=== PATIENT | female | born 1955 | race Caucasian/White ===

== ENCOUNTER 2018-04-26 08:06 | Outpatient (CLI) | payer OTHER | END 2018-04-26 08:07 | disposition home or self-care (01) | LOC: BICMAMMO 08:06 | PROVIDERS: ATTEND Family Medicine | DX: Z12.31 Encounter for screening mammogram for malignant neoplasm of breast (principal) | CPT/HCPCS: 77063; 77067 ==

== ENCOUNTER 2022-05-20 10:30 | Inpatient (IN) | payer OTHER, MEDICARE ==
[2022-05-24] MEDS ORDERED: Fentanyl 250 MCG/5 ML VIAL ONE (06:31)
[2022-05-24] MEDS ORDERED: Midazolam HCl 2 mg/2 ml Vial ONE (06:31)
[2022-05-24] MEDS ORDERED: Famotidine/PF 20 mg/2ml Vial ONE (06:31)
[2022-05-24] MEDS ORDERED: Ondansetron PF 4 MG/2 ML Vial ONE (07:03)
[2022-05-24] MEDS ORDERED: Rocuronium Bromide 10 MG/ML (10ML VIAL) ONE (07:03)
[2022-05-24] MEDS ORDERED: PROPOFOL 200 MG/20 ML VIAL ONE (07:03)
[2022-05-24] MEDS ORDERED: PHENYLEPHRINE-NS 100 MCG/ML 10 ML SYRINGE ONE ×2 (07:03→10:20)
[2022-05-24] MEDS ORDERED: Glycopyrrolate 0.2 MG/ML 5 ML SYRINGE ONE (07:03)
[2022-05-24] MEDS ORDERED: Ketorolac Tromethamine 30 MG/ML VIAL ONE (07:03)
[2022-05-24] MEDS ORDERED: ePHEDrine 50 MG/ML VIAL ONE (07:03)
[2022-05-24] MEDS ORDERED: Lidocaine 1% PF 5 ML VIAL ONE (07:03)
[2022-05-24] MEDS ORDERED: NEOSTIGMINE 3 MG/3 ML SYR 3 MG/3 ML SYRINGE ONE (07:03)
[2022-05-24] MEDS ORDERED: cefOXitin 2 GM VIAL ONE (07:09)
[2022-05-24] MEDS ORDERED: Sodium Chloride 0.9% 100 ML ONE (07:09)
[2022-05-24 07:18] LABS: SARS-CoV-2 NAA Rapid Test Not Detected (NotDetected)
[2022-05-24] MEDS ORDERED: Fentanyl 100 MCG/2 ML VIAL ONE ×2 (07:29→11:02)
[2022-05-24] MEDS ORDERED: Bupivacaine PF 0.5% 30 ML VIAL ONE (07:53)
[2022-05-24] MEDS ORDERED: Phenylephrine 10 MG/ML VIAL ONE ×2 (08:47→10:20)
[2022-05-24] MEDS ORDERED: Promethazine HCl 25 MG/ML VIAL IVPB PRN (09:41)
[2022-05-24] MEDS ORDERED: Promethazine HCl 25 MG/ML VIAL IM PRN ×4 (09:41→10:59)
[2022-05-24] MEDS ORDERED: HYDROmorphone 2 MG/ML VIAL SLOW IVP PRN (09:41)
[2022-05-24] MEDS ORDERED: Ondansetron HCl/PF 4 MG/2 ML Vial IVP PRN (09:41)
[2022-05-24] MEDS ORDERED: Bupivacaine/Epinephrine 0.25% 30 ML VIAL ONE (10:04)
[2022-05-24] MEDS ORDERED: SUGAMMADEX SODIUM 200 MG/2 ML VIAL ONE (10:20)
[2022-05-24] MEDS ORDERED: Ondansetron PF 4 MG/2 ML Vial IVP PRN ×3 (10:23→10:59)
[2022-05-24] MEDS ORDERED: Ipratropium/Albuterol 3 ML NEB NEB PRN (10:23)
[2022-05-24] MEDS ORDERED: hydrALAZINE 20 MG/ML VIAL SLOW IVP PRN (10:23)
[2022-05-24] MEDS ORDERED: diphenhydrAMINE 25 MG CAP PO PRN ×2 (10:59)
[2022-05-24] MEDS ORDERED: diphenhydrAMINE 50 MG/ML VIAL IVP PRN ×2 (10:59)
[2022-05-24] MEDS ORDERED: diphenhydrAMINE 50 MG/ML VIAL IM PRN ×2 (10:59)
[2022-05-24] MEDS ORDERED: FENTANYL 500 MCG/10 ML VIAL 2,000 MCG in Sodium Chloride 0.9% 60 ML IV PRN (10:59)
[2022-05-24] MEDS ORDERED: Zolpidem Tartrate 5 MG TAB PO PRN ×2 (10:59)
[2022-05-24] MEDS ORDERED: Naloxone HCl 0.4 mg/ml Vial IV PRN ×2 (10:59)
[2022-05-24] MEDS ORDERED: Communication Order-Pharmacy FS SCH ×2 (11:00)
[2022-05-24] MEDS: Ketorolac Tromethamine 30 MG/ML VIAL IVP SCH ×3 (17:49→23:26)
[2022-05-24] MEDS: Sodium Chloride 0.9% 1,000 ML IV SCH ×2 (17:49→18:29)
[2022-05-24] MEDS: cefOXitin 2 GM in Sodium Chloride 0.9% 100 ML IVPB SCH ×2 (18:10→23:26)
[2022-05-24] MEDS: Famotidine/PF 20 mg/2ml Vial SLOW IVP SCH (20:00)
[2022-05-24] MEDS: Famotidine 20 MG TAB PO SCH (20:00)
[2022-05-25] MEDS: Sodium Chloride 0.9% 1,000 ML IV SCH ×3 (03:15→17:12)
[2022-05-25 06:02] LABS: #Lymphocytes 2.2 thou/uL (1.20-3.40); #Neutrophils 7.9 thou/uL (1.40-6.50); %Eosinophils 0.2 % (0.0-10.0); %Lymphocytes 19.8 % (21.0-51.0); %Monocytes 9.4 % (0.0-10.0); %Neutrophils 70.7 % (42.0-75.0); Hemoglobin 11.8 g/dL (12.0-16.0); Mean Corpuscular HGB CONC 32.5 g/dL (32.0-36.0); Mean Corpuscular Hemoglobin 29.4 pg (27.0-31.0); Mean Corpuscular Volume 90.5 fl (78.0-98.0); Mean Platelet Volume 8.1 fL (7.4-10.4); Platelet Count 242 10x3/uL (130-400); RBC Distribution Width 13.6 % (11.5-14.5); Red Blood Cell (RBC) Count 4.01 mill/uL (4.20-5.40); White Blood Cell (WBC) Count 11.2 10x3/uL (4.8-10.8)
[2022-05-25] MEDS: Ketorolac Tromethamine 30 MG/ML VIAL IVP SCH ×4 (06:15→23:51)
[2022-05-25 06:25] LABS: Anion Gap 10 mmol/L (10-20); BUN (Urea Nitrogen) 15 mg/dL (9.8-20.1); Calc. Creatinine Clearance 82 mL/min (70-130); Calcium 8.9 mg/dL (7.8-10.44); Carbon Dioxide 23 mmol/L (23-31); Chloride 109 mmol/L (98-107); Estimated GFR 76; Glucose 110 mg/dL (80-115); Potassium 4.1 mmol/L (3.5-5.1); Sodium 138 mmol/L (136-145)
[2022-05-25] MEDS: Famotidine 20 MG TAB PO SCH ×2 (08:05→21:07)
[2022-05-25] MEDS: Famotidine/PF 20 mg/2ml Vial SLOW IVP SCH ×2 (08:19→21:08)
[2022-05-26] MEDS: Sodium Chloride 0.9% 1,000 ML IV SCH ×3 (05:38→19:49)
[2022-05-26] MEDS: Ketorolac Tromethamine 30 MG/ML VIAL IVP SCH ×3 (05:38→18:03)
[2022-05-26] MEDS ORDERED: DC PCA Order Set 1 EACH FS ONE (07:42)
[2022-05-26] MEDS ORDERED: Morphine 4 MG/ML VIAL SLOW IVP PRN (07:43)
[2022-05-26] MEDS ORDERED: Morphine 2 MG/ML VIAL SLOW IVP PRN (07:43)
[2022-05-26] MEDS: Famotidine 20 MG TAB PO SCH ×2 (09:02→20:14)
[2022-05-26] MEDS ORDERED: HYDROcodone/Acetaminophen 5/325 mg Tablet PO PRN (09:09)
[2022-05-26] MEDS: Famotidine/PF 20 mg/2ml Vial SLOW IVP SCH ×2 (09:11→19:49)
[2022-05-26] MEDS: HYDROcodone/Acetaminophen 5/325 mg Tablet PO PRN ×2 (12:26→20:13)
[2022-05-27] MEDS: Ketorolac Tromethamine 30 MG/ML VIAL IVP SCH ×2 (00:18→04:47)
[2022-05-27] MEDS: Sodium Chloride 0.9% 1,000 ML IV SCH (04:47)
[2022-05-27 07:49] VITALS: BP 151/81; TEMP 98.3
[2022-05-27] MEDS: Famotidine/PF 20 mg/2ml Vial SLOW IVP SCH (08:50)
[2022-05-27] MEDS: Famotidine 20 MG TAB PO SCH (08:50)
== END 2022-05-27 10:40 | disposition home or self-care (01) | DRG 330 ==
LOC: SURG A 05-24 06:01 → SJJU 05-24 17:48
PROVIDERS: ADMIT Surgery; ATTEND Surgery
PROC: 0DBN0ZZ Excision of Sigmoid Colon, Open Approach (ICD-10-PCS; principal; 2022-05-24)
PROC: 0DQ80ZZ Repair Small Intestine, Open Approach (ICD-10-PCS; 2022-05-24)
DX: K57.32 Diverticulitis of large intestine without perforation or abscess without bleeding (principal); K56.609 Unspecified intestinal obstruction, unspecified as to partial versus complete obstruction; F41.9 Anxiety disorder, unspecified; I10 Essential (primary) hypertension; F32.A Depression, unspecified; Z79.899 Other long term (current) drug therapy
CPT/HCPCS: 36415; 36416; 80048; 85025; 88307; C1713; J0694; J1650; J1885; J2250; J2370; J2405; J2704; J3010; J3490; J7050; S0020; S0028; U0002

== ENCOUNTER 2022-05-20 10:39 | Outpatient (CLI) | payer OTHER ==
[2022-05-20 12:06] LABS: #Eosinphils 0.1 10x3/uL (0.0-0.5); #Monocytes 0.5 10x3/uL (0.0-1.1); #Neutrophils 2.8 10x3/uL (1.5-8.4); %Basophils 0.6 % (0.0-2.0); %Monocytes 7.7 % (0.0-10.0); %Neutrophils 42.4 % (40.0-75.0); Hemoglobin 13.9 g/dL (12.0-15.5); Mean Corpuscular HGB CONC 33.7 g/dL (32.0-36.0); Mean Corpuscular Hemoglobin 28.9 pg (27.0-33.0); Mean Corpuscular Volume 85.7 fl (81.6-98.3); Mean Platelet Volume 10.5 fl (7.4-10.4); Platelet Count 327 10x3/uL (150-450); RBC Distribution Width 14.2 % (11.5-14.5); Red Blood Cell (RBC) Count 4.81 10x6/uL (3.90-5.03); White Blood Cell (WBC) Count 6.6 10x3/uL (3.5-10.5)
[2022-05-20 12:32] LABS: ALT (SGPT) 42 U/L (8-55); AST (SGOT) 28 U/L (5-34); Albumin 4.5 g/dL (3.4-4.8); Alkaline Phosphatase 101 U/L (40-110); Anion Gap 13 mmol/L (10-20); BUN (Urea Nitrogen) 13 mg/dL (9.8-20.1); Bilirubin, Total 0.6 mg/dL (0.2-1.2); Calc. Creatinine Clearance 0 mL/min (70-130); Calcium 10.1 mg/dL (7.8-10.44); Carbon Dioxide 28 mmol/L (23-31); Chloride 102 mmol/L (98-107); Estimated GFR 71; Globulin 3.3 g/dL (2.4-3.5); Glucose 80 mg/dL (80-115); Protein, Total 7.8 g/dL (5.8-8.1); Sodium 139 mmol/L (136-145)
== END 2022-05-20 10:40 | disposition home or self-care (01) ==
LOC: LABBT 10:39
PROVIDERS: ATTEND Surgery
DX: Z01.818 Encounter for other preprocedural examination (principal); K57.32 Diverticulitis of large intestine without perforation or abscess without bleeding
CPT/HCPCS: 80053; 83036; 85025; 93005; 93010

== ENCOUNTER 2022-07-05 08:31 | Outpatient (CLI) | payer OTHER ==
[2022-07-05] MEDS ORDERED: MD-Gastroview 120 ML BOT ONE (10:52)
== END 2022-07-05 08:32 | disposition home or self-care (01) ==
LOC: RAD 08:31
PROVIDERS: ATTEND Surgery
DX: K57.32 Diverticulitis of large intestine without perforation or abscess without bleeding (principal); K57.30 Diverticulosis of large intestine without perforation or abscess without bleeding; Z93.3 Colostomy status
CPT/HCPCS: 74280; Q9963

== ENCOUNTER 2022-07-19 11:57 | Outpatient (CLI) | payer OTHER ==
[2022-07-19 13:04] LABS: #Eosinphils 0.2 10x3/uL (0.0-0.5); #Monocytes 0.5 10x3/uL (0.0-1.1); #Neutrophils 5.1 10x3/uL (1.5-8.4); %Basophils 0.3 % (0.0-2.0); %Eosinophils 2.2 % (0.0-6.0); %Lymphocytes 33.1 % (18.0-47.0); %Monocytes 5.2 % (0.0-10.0); Hemoglobin 13.8 g/dL (12.0-15.5); Mean Corpuscular HGB CONC 33.1 g/dL (32.0-36.0); Mean Corpuscular Hemoglobin 28.8 pg (27.0-33.0); Mean Corpuscular Volume 86.9 fl (81.6-98.3); Mean Platelet Volume 10.9 fl (7.4-10.4); Platelet Count 297 10x3/uL (150-450); White Blood Cell (WBC) Count 8.7 10x3/uL (3.5-10.5)
[2022-07-19 21:33] LABS: Hemoglobin A1c 5.1 % (4.0-6.0)
== END 2022-07-19 11:58 | disposition home or self-care (01) ==
LOC: LABBT 11:57
PROVIDERS: ATTEND Surgery
DX: Z01.818 Encounter for other preprocedural examination (principal); K57.32 Diverticulitis of large intestine without perforation or abscess without bleeding; Z93.3 Colostomy status
CPT/HCPCS: 83036; 85025; 93005; 93010

== ENCOUNTER 2022-07-19 12:00 | Inpatient (IN) | payer OTHER, MEDICARE ==
[2022-07-19 13:36] VITALS: BMI 29.2
[2022-07-21] MEDS ORDERED: fentaNYL PF 100 MCG/2 ML SYRINGE ONE (06:27)
[2022-07-21] MEDS ORDERED: Ondansetron HCl/PF 4 MG/2 ML Vial IVP PRN (07:03)
[2022-07-21] MEDS ORDERED: Promethazine HCl 25 MG/ML VIAL IM PRN ×3 (07:03→10:19)
[2022-07-21 07:07] LABS: SARS-CoV-2 NAA Rapid Test Not Detected (NotDetected)
[2022-07-21] MEDS ORDERED: cefOXitin 2 GM VIAL ONE (07:17)
[2022-07-21] MEDS ORDERED: Sodium Chloride 0.9% 100 ML ONE (07:17)
[2022-07-21] MEDS ORDERED: PROPOFOL 200 MG/20 ML VIAL ONE (07:39)
[2022-07-21] MEDS ORDERED: Ondansetron PF 4 MG/2 ML Vial ONE (07:39)
[2022-07-21] MEDS ORDERED: NEOSTIGMINE 3 MG/3 ML SYR 3 MG/3 ML SYRINGE ONE (07:39)
[2022-07-21] MEDS ORDERED: Ketorolac Tromethamine 30 MG/ML VIAL ONE (07:39)
[2022-07-21] MEDS ORDERED: Dexamethasone 20 MG/5 ML VIAL ONE (07:39)
[2022-07-21] MEDS ORDERED: Rocuronium Bromide 10 MG/ML (10ML VIAL) ONE (07:39)
[2022-07-21] MEDS ORDERED: Lidocaine 1% PF 5 ML VIAL ONE (07:39)
[2022-07-21] MEDS ORDERED: ePHEDrine 50 MG/ML VIAL ONE (07:39)
[2022-07-21] MEDS ORDERED: Glycopyrrolate 0.2 MG/ML 5 ML SYRINGE ONE (07:39)
[2022-07-21] MEDS ORDERED: PHENYLEPHRINE-NS 100 MCG/ML 10 ML SYRINGE ONE (07:39)
[2022-07-21] MEDS ORDERED: Ondansetron PF 4 MG/2 ML Vial IVP PRN ×2 (09:19→10:19)
[2022-07-21] MEDS ORDERED: Morphine 2 MG/ML VIAL SLOW IVP PRN (09:19)
[2022-07-21] MEDS ORDERED: Morphine 4 MG/ML VIAL SLOW IVP PRN ×2 (09:19→09:56)
[2022-07-21] MEDS ORDERED: hydrALAZINE 20 MG/ML VIAL SLOW IVP PRN (09:19)
[2022-07-21] MEDS ORDERED: Ipratropium/Albuterol 3 ML NEB NEB PRN (09:19)
[2022-07-21] MEDS ORDERED: Fentanyl 100 MCG/2 ML VIAL ONE ×2 (09:36→10:03)
[2022-07-21] MEDS ORDERED: diphenhydrAMINE 25 MG CAP PO PRN (10:19)
[2022-07-21] MEDS ORDERED: Naloxone HCl 0.4 mg/ml Vial IV PRN (10:19)
[2022-07-21] MEDS ORDERED: diphenhydrAMINE 50 MG/ML VIAL IM PRN (10:19)
[2022-07-21] MEDS ORDERED: FENTANYL 500 MCG/10 ML VIAL 2,000 MCG in Sodium Chloride 0.9% 60 ML IV PRN (10:19)
[2022-07-21] MEDS ORDERED: diphenhydrAMINE 50 MG/ML VIAL IVP PRN (10:19)
[2022-07-21] MEDS ORDERED: Zolpidem Tartrate 5 MG TAB PO PRN (10:19)
[2022-07-21] MEDS ORDERED: Communication Order-Pharmacy FS SCH (10:30)
[2022-07-21] MEDS ORDERED: Ketorolac Tromethamine 30 MG/ML VIAL IVP SCH (12:00)
[2022-07-21] MEDS: cefOXitin 2 GM in Sodium Chloride 0.9% 100 ML IVPB SCH ×2 (15:48→21:20)
[2022-07-21] MEDS: Sodium Chloride 0.9% 1,000 ML IV SCH ×2 (15:49→18:59)
[2022-07-21] MEDS: Famotidine/PF 20 mg/2ml Vial SLOW IVP SCH (21:20)
[2022-07-21] MEDS: Famotidine 20 MG TAB PO SCH (21:20)
[2022-07-22 04:48] LABS: #Eosinphils 0.1 thou/uL (0.0-0.7); #Lymphocytes 2.2 thou/uL (1.20-3.40); #Monocytes 0.7 thou/uL (0.11-0.59); #Neutrophils 6.2 thou/uL (1.40-6.50); %Basophils 0.1 % (0.0-1.0); %Eosinophils 0.8 % (0.0-10.0); %Lymphocytes 23.6 % (21.0-51.0); %Monocytes 7.9 % (0.0-10.0); %Neutrophils 67.6 % (42.0-75.0); Hemoglobin 11.2 g/dL (12.0-16.0); Mean Corpuscular Hemoglobin 30.6 pg (27.0-31.0); Mean Platelet Volume 9.1 fL (7.4-10.4); Platelet Count 181 10x3/uL (130-400); RBC Distribution Width 12.4 % (11.5-14.5); Red Blood Cell (RBC) Count 3.64 mill/uL (4.20-5.40); White Blood Cell (WBC) Count 9.1 10x3/uL (4.8-10.8)
[2022-07-22 05:04] LABS: Anion Gap 10 mmol/L (10-20); BUN (Urea Nitrogen) 11 mg/dL (9.8-20.1); Calc. Creatinine Clearance 81 mL/min (70-130); Calcium 8.5 mg/dL (7.8-10.44); Carbon Dioxide 23 mmol/L (23-31); Chloride 109 mmol/L (98-107); Estimated GFR 78; Glucose 96 mg/dL (80-115); Potassium 3.8 mmol/L (3.5-5.1); Sodium 138 mmol/L (136-145)
[2022-07-22] MEDS: Sodium Chloride 0.9% 1,000 ML IV SCH ×3 (07:23→20:00)
[2022-07-22] MEDS: Famotidine/PF 20 mg/2ml Vial SLOW IVP SCH ×2 (08:07→21:26)
[2022-07-22] MEDS: Famotidine 20 MG TAB PO SCH ×2 (08:08→21:27)
[2022-07-23] MEDS: Sodium Chloride 0.9% 1,000 ML IV SCH ×2 (03:50→12:36)
[2022-07-23] MEDS ORDERED: HYDROcodone/Acetaminophen 7.5/325 mg Tablet PO PRN ×2 (07:54)
[2022-07-23] MEDS: Famotidine 20 MG TAB PO SCH (08:21)
[2022-07-23] MEDS: Famotidine/PF 20 mg/2ml Vial SLOW IVP SCH (08:21)
[2022-07-23 11:45] VITALS: TEMP 98.2
[2022-07-23 11:47] VITALS: BP 115/76
== END 2022-07-23 13:38 | disposition home or self-care (01) | DRG 331 ==
LOC: SURG A 07-21 06:11
PROVIDERS: ADMIT Surgery; ATTEND Surgery
PROC: 0DQL0ZZ Repair Transverse Colon, Open Approach (ICD-10-PCS; principal; 2022-07-21)
DX: Z43.3 Encounter for attention to colostomy (principal); I10 Essential (primary) hypertension; F32.A Depression, unspecified; Z98.890 Other specified postprocedural states; Z90.49 Acquired absence of other specified parts of digestive tract; Z79.899 Other long term (current) drug therapy; Z20.822 Contact with and (suspected) exposure to COVID-19
CPT/HCPCS: 36415; 80048; 85025; J0694; J1100; J1650; J1885; J2405; J2704; J3010; J3490; J7050; S0028; U0002

== ENCOUNTER 2023-06-16 15:04 | Outpatient (CLI) | payer MEDICARE, BC ==
[2023-06-16 15:51] LABS: #Eosinphils 0.2 10x3/uL (0.0-0.5); #Monocytes 0.4 10x3/uL (0.0-1.1); %Basophils 0.5 % (0.0-2.0); %Eosinophils 2.9 % (0.0-6.0); %Lymphocytes 37.9 % (18.0-47.0); %Monocytes 5.5 % (0.0-10.0); %Neutrophils 52.8 % (40.0-75.0); Hematocrit 41.3 % (34.9-44.5); Hemoglobin 14.2 g/dL (12.0-15.5); Mean Corpuscular HGB CONC 34.4 g/dL (32.0-36.0); Mean Corpuscular Hemoglobin 30.5 pg (27.0-33.0); Mean Corpuscular Volume 88.6 fl (81.6-98.3); Mean Platelet Volume 11.5 fl (7.4-10.4); Platelet Count 244 10x3/uL (150-450); RBC Distribution Width 12.4 % (11.5-14.5); Red Blood Cell (RBC) Count 4.66 10x6/uL (3.90-5.03); White Blood Cell (WBC) Count 7.6 10x3/uL (3.5-10.5)
[2023-06-16 16:08] LABS: ALT (SGPT) 53 U/L (8-55); AST (SGOT) 26 U/L (5-34); Albumin 4.4 g/dL (3.4-4.8); Alkaline Phosphatase 71 U/L (40-110); Anion Gap 13 mmol/L (10-20); BUN (Urea Nitrogen) 15 mg/dL (9.8-20.1); Bilirubin, Total 0.5 mg/dL (0.2-1.2); Calc. Creatinine Clearance 0 mL/min (70-130); Calcium 9.6 mg/dL (7.8-10.44); Carbon Dioxide 26 mmol/L (23-31); Chloride 105 mmol/L (98-107); Estimated GFR 68; Globulin 2.7 g/dL (2.4-3.5); Glucose 98 mg/dL (80-115); Potassium 3.8 mmol/L (3.5-5.1); Protein, Total 7.1 g/dL (5.8-8.1); Sodium 140 mmol/L (136-145)
== END 2023-06-16 15:05 | disposition home or self-care (01) ==
LOC: LABBT 15:04
PROVIDERS: ATTEND Surgery
DX: Z01.818 Encounter for other preprocedural examination (principal); K43.2 Incisional hernia without obstruction or gangrene
CPT/HCPCS: 80053; 85025; 93005; 93010

== ENCOUNTER 2023-06-17 11:00 | Day surgery (SDC) | payer BC, MEDICARE ==
[2023-06-16 15:36] VITALS: BMI 36.0
[2023-06-17] MEDS ORDERED: Bupivacaine 0.25% HCL 30 ML VIAL ONE (12:08)
[2023-06-17] MEDS ORDERED: EPINEPHrine 1 MG/ML VIAL ONE (12:08)
[2023-06-17] MEDS ORDERED: PROPOFOL 40 ML ONE (12:10)
[2023-06-17] MEDS ORDERED: Ondansetron PF 4 MG/2 ML Vial ONE (12:10)
[2023-06-17] MEDS ORDERED: Lidocaine 1% PF 5 ML VIAL ONE (12:10)
[2023-06-17] MEDS ORDERED: Dexamethasone 4 mg/ml Vial ONE (12:10)
[2023-06-17] MEDS ORDERED: Rocuronium Bromide 10 MG/ML (10ML VIAL) ONE (12:10)
[2023-06-17] MEDS ORDERED: fentaNYL PF 100 MCG/2 ML SYRINGE ONE (12:10)
[2023-06-17] MEDS ORDERED: SUGAMMADEX SODIUM 200 MG/2 ML VIAL ONE (12:11)
[2023-06-17] MEDS ORDERED: Sodium Chloride 0.9% 100 ML ONE (12:45)
[2023-06-17] MEDS ORDERED: CEFAZOLIN 2 GM VIAL ONE (12:45)
[2023-06-17] MEDS ORDERED: Ketorolac Tromethamine 30 MG (1 mL) VIAL ONE (13:23)
[2023-06-17] MEDS ORDERED: fentaNYL 50 mcg/mL 1 mL Vial ONE (14:25)
== END 2023-06-17 15:52 | disposition home or self-care (01) ==
LOC: SDC 11:00
PROVIDERS: ATTEND Surgery
PROC: 0WQF0ZZ Repair Abdominal Wall, Open Approach (ICD-10-PCS; principal; 2023-06-17)
DX: K43.2 Incisional hernia without obstruction or gangrene (principal); F32.A Depression, unspecified; I10 Essential (primary) hypertension; Z98.890 Other specified postprocedural states; Z79.899 Other long term (current) drug therapy
CPT/HCPCS: C1781; J0171; J0665; J1100; J1885; J2405; J2704; J3010; J3490

== ENCOUNTER 2024-04-16 07:49 | Outpatient (CLI) | payer BC, MEDICARE | END 2024-04-16 07:50 | disposition home or self-care (01) | LOC: ULT 07:49 | PROVIDERS: ATTEND Physician Assistant Medical | DX: R79.89 Other specified abnormal findings of blood chemistry (principal); N28.1 Cyst of kidney, acquired; R93.2 Abnormal findings on diagnostic imaging of liver and biliary tract; Z90.49 Acquired absence of other specified parts of digestive tract | CPT/HCPCS: 76705 ==

== ENCOUNTER 2024-05-01 11:08 | Outpatient (CLI) | payer BC, MEDICARE ==
[2024-05-01 11:49] LABS: #Basophils 0.03 10x3/uL (0.0-0.2); %Basophils 0.3 % (0.0-1.0); %Lymphocytes 36.4 % (21.0-51.0); %Monocytes 6.1 % (0.0-10.0); %Neutrophils 54.9 % (42.0-75.0); Hematocrit 43.2 % (36.0-47.0); Hemoglobin 14.8 g/dL (12.0-16.0); Mean Corpuscular HGB CONC 34.3 g/dL (32.0-36.0); Mean Corpuscular Hemoglobin 29.8 pg (27.0-31.0); Mean Corpuscular Volume 87.1 fL (78.0-98.0); Mean Platelet Volume 11.5 fL (7.4-10.4); Platelet Count 250 10x3/uL (130-400); RBC Distribution Width 12.7 % (11.5-14.5); Red Blood Cell (RBC) Count 4.96 mill/uL (4.20-5.40)
[2024-05-01 12:12] LABS: ALT (SGPT) 53 U/L (8-55); AST (SGOT) 29 U/L (5-34); Alkaline Phosphatase 77 U/L (40-110); Anion Gap 12 mmol/L (10-20); BUN (Urea Nitrogen) 17 mg/dL (9.8-20.1); Bilirubin, Total 0.5 mg/dL (0.2-1.2); Calc. Creatinine Clearance 0 mL/min (70-130); Calcium 9.7 mg/dL (7.8-10.44); Carbon Dioxide 24 mmol/L (23-31); Chloride 104 mmol/L (98-107); Estimated GFR 60; Globulin 3.3 g/dL (2.4-3.5); Glucose 88 mg/dL (80-115); Potassium 3.7 mmol/L (3.5-5.1); Protein, Total 7.3 g/dL (5.8-8.1); Sodium 136 mmol/L (136-145)
== END 2024-05-01 11:09 | disposition home or self-care (01) ==
LOC: LABBT 11:08
PROVIDERS: ATTEND Surgery
DX: Z01.818 Encounter for other preprocedural examination (principal); K43.2 Incisional hernia without obstruction or gangrene
CPT/HCPCS: 80053; 85025; 93005; 93010

== ENCOUNTER 2024-05-04 05:58 | Day surgery (SDC) | payer BC, MEDICARE ==
[2024-05-01 11:18] VITALS: BMI 34.1
[2024-05-04] MEDS ORDERED: Bupivacaine 0.25% HCL 30 ML VIAL ONE (06:27)
[2024-05-04] MEDS ORDERED: EPINEPHrine 1 MG/ML VIAL ONE (06:27)
[2024-05-04] MEDS ORDERED: CEFAZOLIN 2 GM VIAL ONE (06:36)
[2024-05-04] MEDS ORDERED: fentaNYL PF 100 MCG/2 ML SYRINGE ONE (06:50)
[2024-05-04] MEDS ORDERED: PROPOFOL 20 ML ONE (06:50)
[2024-05-04] MEDS ORDERED: Midazolam HCl 2 mg/2 ml Vial ONE (06:50)
[2024-05-04] MEDS ORDERED: Dexamethasone 20 MG/5 ML VIAL ONE (06:50)
[2024-05-04] MEDS ORDERED: Ondansetron PF 4 MG/2 ML Vial ONE (06:50)
[2024-05-04] MEDS ORDERED: Lidocaine 1% PF 5 ML VIAL ONE (07:34)
[2024-05-04] MEDS ORDERED: Rocuronium Bromide 10 MG/ML (10ML VIAL) ONE (07:34)
[2024-05-04] MEDS ORDERED: Glycopyrrolate 0.2 MG/ML 5 ML SYRINGE ONE (07:34)
[2024-05-04] MEDS ORDERED: Ketorolac Tromethamine 30 MG (1 mL) VIAL ONE (07:34)
[2024-05-04] MEDS ORDERED: PHENYLEPHRINE-NS 100 MCG/ML 10 ML SYRINGE ONE (07:34)
[2024-05-04] MEDS ORDERED: NEOSTIGMINE 3 MG/3 ML SYRINGE ONE (07:34)
[2024-05-04] MEDS ORDERED: fentaNYL 50 mcg/mL 1 mL Vial ONE ×3 (08:38→11:47)
[2024-05-04] MEDS ORDERED: SUGAMMADEX SODIUM 200 MG/2 ML VIAL ONE (09:10)
[2024-05-04] MEDS ORDERED: HYDROcodone/Acetaminophen 5/325 mg Tablet ONE (13:35)
== END 2024-05-04 13:46 | disposition home or self-care (01) ==
LOC: SDC 05:58
PROVIDERS: ATTEND Surgery
PROC: 0WUF4JZ Supplement Abdominal Wall with Synthetic Substitute, Percutaneous Endoscopic Approach (ICD-10-PCS; principal; 2024-05-04)
DX: K43.2 Incisional hernia without obstruction or gangrene (principal); F32.A Depression, unspecified; I10 Essential (primary) hypertension; G47.00 Insomnia, unspecified; F41.9 Anxiety disorder, unspecified; Z90.49 Acquired absence of other specified parts of digestive tract; Z98.890 Other specified postprocedural states; Z79.899 Other long term (current) drug therapy
CPT/HCPCS: 49615; C1781; J0171; J0665; J1100; J1885; J2250; J2405; J2704; J3010; S2900

== ENCOUNTER 2024-05-11 12:38 | Emergency (ER) | payer BC, MEDICARE ==
[~2024-05-11 12:38] MED LIST: Iopamidol-370 76% 500 ML MDV (1 ML CHARGE) ONE
[2024-05-11 13:17] LABS: #Basophils 0.06 10x3/uL (0.0-0.2); %Basophils 0.5 % (0.0-1.0); %Eosinophils 4.4 % (0.0-10.0); %Lymphocytes 17.8 % (21.0-51.0); %Monocytes 7.1 % (0.0-10.0); %Neutrophils 69.6 % (42.0-75.0); Hematocrit 44.2 % (36.0-47.0); Hemoglobin 15.2 g/dL (12.0-16.0); Mean Corpuscular HGB CONC 34.4 g/dL (32.0-36.0); Mean Corpuscular Hemoglobin 30.3 pg (27.0-31.0); Mean Platelet Volume 11.1 fL (7.4-10.4); Platelet Count 334 10x3/uL (130-400); RBC Distribution Width 12.5 % (11.5-14.5); Red Blood Cell (RBC) Count 5.02 mill/uL (4.20-5.40)
[2024-05-11 13:37] LABS: ALT (SGPT) 48 U/L (8-55); AST (SGOT) 30 U/L (5-34); Albumin 3.8 g/dL (3.4-4.8); Alkaline Phosphatase 83 U/L (40-110); Anion Gap 14 mmol/L (10-20); BUN (Urea Nitrogen) 20 mg/dL (9.8-20.1); Bilirubin, Total 0.5 mg/dL (0.2-1.2); Calc. Creatinine Clearance 0 mL/min (70-130); Carbon Dioxide 23 mmol/L (23-31); Chloride 103 mmol/L (98-107); Estimated GFR 64; Globulin 4.1 g/dL (2.4-3.5); Glucose 110 mg/dL (80-115); Lipase 19 U/L (8-78); Potassium 3.9 mmol/L (3.5-5.1); Protein, Total 7.9 g/dL (5.8-8.1); Sodium 136 mmol/L (136-145)
[2024-05-11 13:58] LABS: Bacteria/HPF None Seen HPF (None Seen); Bilirubin Negative (Negative); Blood, Urine 1+ (Negative); CAUTI Indications for Culture Pelvic or flank pain; Clarity Clear (Clear); Glucose, Urine (Dipstick) Normal (Negative); Ketone, Urine Negative (Negative); Leukocyte 250 Leu/uL (Negative); Nitrite Negative (Negative); Protein, Urine (Dipstick) Negative (Neg-Trace); RBC/HPF 0-3 HPF (0-3); Specific Gravity, Urine 1.026 (1.002-1.036); Squamous Epithelial 0-3 HPF (0-3); Urobilinogen Normal mg/dL (Less than 2); pH, Urine 5.5 (5.0-9.0)
[2024-05-11 14:05] LABS: Urine Culture Reflex Yes Yes
[2024-05-11] MEDS ORDERED: fentaNYL 50 mcg/mL 1 mL Vial ONE ×2 (14:13→17:06)
[2024-05-11] MEDS ORDERED: Ondansetron PF 4 MG/2 ML Vial ONE (14:13)
== END 2024-05-11 17:14 | disposition home or self-care (01) ==
LOC: ERS 12:38
DX: N39.0 Urinary tract infection, site not specified (principal); R10.11 Right upper quadrant pain; I10 Essential (primary) hypertension; Z79.899 Other long term (current) drug therapy
CPT/HCPCS: 36415; 74177; 80053; 81001; 83605; 83690; 85025; 87086; 96374; 96375; 96376; J2405; J3010; Q9967

== ENCOUNTER 2024-05-17 12:59 | Outpatient (CLI) | payer BC, MEDICARE | END 2024-05-17 13:00 | disposition home or self-care (01) | LOC: BICMAMMO 12:59 | PROVIDERS: ATTEND Family Medicine | DX: Z12.31 Encounter for screening mammogram for malignant neoplasm of breast (principal); N63.42 Unspecified lump in left breast, subareolar; N63.10 Unspecified lump in the right breast, unspecified quadrant; Z98.890 Other specified postprocedural states | CPT/HCPCS: 77063; 77067 ==

== ENCOUNTER 2024-05-25 11:01 | Outpatient (CLI) | payer BC, MEDICARE | END 2024-05-25 11:02 | disposition home or self-care (01) | LOC: BICULT 11:01 | PROVIDERS: ATTEND Family Medicine | DX: N63.42 Unspecified lump in left breast, subareolar (principal) ==